=== PATIENT | female | born 1945 | race Two or more races ===

== ENCOUNTER 2017-10-21 07:00 | Day surgery (SDC) | payer OTHER ==
[~2017-10-21] VITALS: Ht 149.9 cm; Wt 67.4 kg
[~2017-10-21 07:00] MED LIST: AVAPRO150 MG PO; COZAAR100 MG PO; GLIMEPIRIDE1 MG; GLIMEPIRIDE2 MG PO; GLIPIZIDE2.5 MG/BO1 PO; LISINOPRIL20 MG PO; NABUMETONE750 MG PO; PRILOSEC20 MG PO; TENORMIN25 MG PO; TRICOR145 MG PO; ZOCOR40 MG PO
[2017-10-22] MEDS ORDERED: GABAPENTIN800 MG PO (07:45)
[2017-10-22] MEDS ORDERED: DOCUSATE SODIU100 MG PO (07:45)
[2017-10-22] MEDS ORDERED: AMOX-CLAV 875-1 EACH PO (07:47)
[2017-10-22] MEDS ORDERED: CLONAZEPAM1 MG PO (07:48)
[2017-10-22] MEDS ORDERED: PERCOCET 5-3251 EACH PO (07:48)
== END 2017-10-22 13:00 | disposition home or self-care (01) ==
LOC: CIR.AMB 07:00 → SURH 10:15 → EDSTATUS 10:15 → PED 10:48 → O/R 10:48 → SURH 15:10 → CIR.AMB 10-22 13:00 → PED 10-22 14:04
DX: M48.061 Spinal stenosis, lumbar region without neurogenic claudication (principal); E11.9 Type 2 diabetes mellitus without complications; I10 Essential (primary) hypertension

== ENCOUNTER 2019-02-06 07:00 | Emergency (ER) | payer OTHER ==
[~2019-02-06] VITALS: Ht 152.4 cm; Wt 67.6 kg
[~2019-02-06 07:00] MED LIST changes: +AMOX-CLAV 875-1 EACH PO; +CLONAZEPAM1 MG PO; +DOCUSATE SODIU100 MG PO; +GABAPENTIN800 MG PO; +PERCOCET 5-3251 EACH PO
[2019-02-06] MEDS ORDERED: PREVACID30 MG (07:21)
== END 2019-02-06 12:03 | disposition home or self-care (01) ==
LOC: ER 07:00
DX: M54.41 Lumbago with sciatica, right side (principal)